=== PATIENT | male | born 1990 | race American Indian/Alaskan Native ===

== ENCOUNTER 2017-08-19 07:38 | Emergency (ER) | payer SELFPAY ==
[2017-08-19 08:04] VITALS: BP 121/75
[2017-08-19] MEDS ORDERED: DUONEB *Not for PRN Use IH ONE ×2 (09:07→09:44)
[2017-08-19] MEDS ORDERED: DELTASONE PO ONE (09:07)
[2017-08-19] MEDS ORDERED: BENADRYL PO ONE (09:08)
--- NOTE | 2017-08-19 09:12 | Emergency Department Report ---
ED General Adult HPI - General Chief complaint: Medical Clearance Stated complaint: CHEST PAIN Time Seen by Provider: 08/19/17 08:44 Source: patient Mode of arrival: Ambulatory Limitations: No Limitations - History of Present Illness Initial comments: 27-year-old male past medical history asthma, anxiety presents with complaint of shortness of breath for 2-3 days. Patient denies chest pain but does state that he feels a sensation of chest tightness. Patient denies smoking drinking or using any drugs. Patient is actively wheezing on exam. States that he also feels slightly anxious and has had difficulty sleeping for several years. Patient is not a primary care doctor and states he has never seen a psych direct selling counselor. Denies any active suicidal or homicidal ideation. Denies any hallucinations. Patient states he does not have any medicine for his asthma. Awake alert and oriented 3. Patient is calm and cooperative during exam. Onset/Timin -: days(s) - Related Data Previous Rx's Medication Instructions Recorded Last Taken Type Albuterol Sulfate [Ventolin Hfa] 1 puff IH Q4H PRN #1 hfa.aer.ad 08/19/17 Unknown Rx Hydroxyzine HCl 25 mg PO Q8H PRN #15 tablet 08/19/17 Unknown Rx predniSONE [Deltasone] 40 mg PO QDAY #10 tab 08/19/17 Unknown Rx Allergies Allergy/AdvReac Type Severity Reaction Status Date / Time No Known Allergies Allergy Unverified 12/11/16 22:30 ED Review of Systems ROS: Stated complaint: CHEST PAIN Other details as noted in HPI Constitutional: denies: chills, fever Eyes: denies: eye pain, eye discharge, vision change ENT: denies: ear pain, throat pain Respiratory: wheezing. denies: cough, shortness of breath Cardiovascular: denies: chest pain, palpitations Endocrine: no symptoms reported Gastrointestinal: denies: abdominal pain, nausea, diarrhea Genitourinary: denies: urgency, dysuria Musculoskeletal: denies: back pain, joint swelling, arthralgia Skin: denies: rash, lesions Neurological: denies: headache, weakness, paresthesias Psychiatric: denies: anxiety, depression Hematological/Lymphatic: denies: easy bleeding, easy bruising ED Past Medical Hx - Past Medical History Hx Asthma: Yes (childhood) Additional medical history: Anxiety - Surgical History Past Surgical History?: No - Social History Smoking Status: Never Smoker Substance Use Type: None - Medications Home Medications: Home Medications Medication Instructions Recorded Confirmed Last Taken Type Albuterol Sulfate [Ventolin Hfa] 1 puff IH Q4H PRN #1 hfa.aer.ad 08/19/17 Unknown Rx Hydroxyzine HCl 25 mg PO Q8H PRN #15 tablet 08/19/17 Unknown Rx predniSONE [Deltasone] 40 mg PO QDAY #10 tab 08/19/17 Unknown Rx ED Physical Exam - General Limitations: No Limitations General appearance: alert, in no apparent distress - Head Head exam: Present: atraumatic, normocephalic - Eye Eye exam: Present: normal appearance - ENT ENT exam: Present: mucous membranes moist - Neck Neck exam: Present: normal inspection - Respiratory Respiratory exam: Present: wheezes (bilateral wheezing both lung marion). Absent: respiratory distress - Cardiovascular Cardiovascular Exam: Present: regular rate, normal rhythm. Absent: systolic murmur, diastolic murmur, rubs, gallop - GI/Abdominal GI/Abdominal exam: Present: soft, normal bowel sounds - Rectal Rectal exam: Present: deferred - Extremities Exam Extremities exam: Present: normal inspection - Back Exam Back exam: Present: normal inspection - Neurological Exam Neurological exam: Present: alert, oriented X3 - Psychiatric Psychiatric exam: Present: normal affect, normal mood - Skin Skin exam: Present: warm, dry, intact, normal color. Absent: rash ED Course Vital Signs 08/19/17 08:02 Temperature 97.6 F Pulse Rate 70 Blood Pressure 121/75 O2 Sat by Pulse 98 Oximetry ED Medical Decision Making - Medical Decision Making A/P: Asthma exacerbation, chronic anxiety 1- refill on albuterol inhaler 2- short course prednisone 3- normal vital signs, patient does not have any audible wheezing or stridor or retractions before discharge. 4- vital signs stable 5- patient to follow up with primary care doctor. I consulted Ms. Merino of mental health to give patient outpatient resources for psychiatric counseling. Patient is not suicidal or homicidal psychotic and does not have any hallucinations at this time. He is calm and fully lucid. I provided patient short prescription for hydroxyzine as needed for anxiety. Critical care attestation.: If time is entered above; I have spent that time in minutes in the direct care of this critically ill patient, excluding procedure time. ED Disposition Clinical Impression: Anxiety Asthma Qualifiers: Asthma severity: mild Asthma persistence: unspecified Asthma complication type : with acute exacerbation Qualified Code(s): J45.901 - Unspecified asthma with ( acute) exacerbation Insomnia Qualifiers: Insomnia type: unspecified Qualified Code(s): G47.00 - Insomnia, unspecified Disposition: DC- TO HOME OR SELFCARE Is pt being admited?: No Does the pt Need Aspirin: No Condition: Stable Instructions: Asthma (ED), Anxiety (ED), Insomnia (ED) Prescriptions: Albuterol Sulfate [Ventolin Hfa] 1 puff IH Q4H PRN #1 hfa.aer.ad PRN Reason: Wheezing Hydroxyzine HCl 25 mg PO Q8H PRN #15 tablet PRN Reason: Anxiety predniSONE [Deltasone] 40 mg PO QDAY #10 tab Referrals: [facility] [Provider Group] - 3-5 Days [facility] [LAB/CONTRACT] - 3-5 Days Forms: Work/School Release Form(ED) Time of Disposition: 10:03
== END 2017-08-19 10:00 | disposition left against medical advice (07) ==
LOC: ED 07:38
DX: J45.901 Unspecified asthma with (acute) exacerbation (principal); F41.9 Anxiety disorder, unspecified; G47.00 Insomnia, unspecified
CPT/HCPCS: 93005; 93010; 94640; 99283; J7512

== ENCOUNTER 2017-08-23 06:10 | Emergency (ER) | payer SELFPAY ==
[2017-08-23 06:31] VITALS: BP 137/81
[2017-08-23] MEDS ORDERED: DUONEB *Not for PRN Use IH ONE ×2 (06:36→07:43)
[2017-08-23] MEDS ORDERED: DECADRON IM ONE (06:38)
[2017-08-23] MEDS ORDERED: TYLENOL PO ONE (06:48)
--- NOTE | 2017-08-23 06:57 | Emergency Department Report ---
<HARRY SORIANO - Last Filed: 08/23/17 06:46> ED Shortness of Breath HPI - General Chief Complaint: Dyspnea/Respdistress Stated Complaint: CHEST PAIN ANXIETY HEADACHE Time Seen by Provider: 08/23/17 06:44 Source: patient Mode of arrival: Ambulatory Limitations: No Limitations - History of Present Illness Initial Comments: 27-year-old -Vietnamese male comes in complaining of shortness of breath and cough with wheezing for a few days. Patient reports that he's had a history of asthma as a child but has not had any recent asthma problems. Patient reports that he was trying to hold out and see if he can treat himself at home with rest. Patient reports that he has come in today because he is having a more difficult to breathe. MD Complaint: shortness of breath -: days(s) (3) Worsens With: lying flat, coughing Context: recent URI, anxiety Associated Symptoms: cough, other Treatments Prior to Arrival: none (headache) - Related Data Previous Rx's Medication Instructions Recorded Last Taken Type Hydroxyzine HCl 25 mg PO Q8H PRN #15 tablet 08/19/17 Unknown Rx predniSONE [Deltasone] 40 mg PO QDAY #10 tab 08/19/17 Unknown Rx Albuterol Sulfate [Ventolin Hfa] 1 puff IH Q4H PRN #1 hfa.aer.ad 08/23/17 Unknown Rx methylPREDNISolone [Medrol] 4 mg PO QAM 6 Days #1 tab.ds.pk 08/23/17 Unknown Rx Allergies Allergy/AdvReac Type Severity Reaction Status Date / Time No Known Allergies Allergy Verified 08/23/17 06:31 ED Review of Systems ROS: Stated complaint: CHEST PAIN ANXIETY HEADACHE Other details as noted in HPI Constitutional: denies: chills, fever Eyes: denies: eye pain, eye discharge, vision change ENT: denies: ear pain, throat pain Respiratory: cough, shortness of breath Cardiovascular: chest pain (with deep cough) Endocrine: no symptoms reported Gastrointestinal: denies: abdominal pain, nausea, diarrhea Genitourinary: denies: urgency, dysuria Musculoskeletal: denies: back pain, joint swelling, arthralgia Skin: denies: rash, lesions Neurological: headache Psychiatric: anxiety. denies: homicidal thoughts, suicidal thoughts Hematological/Lymphatic: denies: easy bleeding, easy bruising ED Past Medical Hx - Past Medical History Previous Medical History?: Yes Hx Asthma: Yes (childhood) Additional medical history: Anxiety - Surgical History Past Surgical History?: No - Social History Smoking Status: Never Smoker Substance Use Type: None - Medications Home Medications: Home Medications Medication Instructions Recorded Confirmed Last Taken Type Hydroxyzine HCl 25 mg PO Q8H PRN #15 tablet 08/19/17 Unknown Rx predniSONE [Deltasone] 40 mg PO QDAY #10 tab 08/19/17 Unknown Rx Albuterol Sulfate [Ventolin Hfa] 1 puff IH Q4H PRN #1 hfa.aer.ad 08/23/17 Unknown Rx methylPREDNISolone [Medrol] 4 mg PO QAM 6 Days #1 tab.ds.pk 08/23/17 Unknown Rx ED Physical Exam - General Limitations: No Limitations General appearance: alert, in no apparent distress - Head Head exam: Present: atraumatic, normocephalic - Eye Eye exam: Present: normal appearance - ENT ENT exam: Present: mucous membranes moist - Respiratory Respiratory exam: Present: wheezes, accessory muscle use - Cardiovascular Cardiovascular Exam: Present: regular rate, normal rhythm. Absent: systolic murmur, diastolic murmur, rubs, gallop - GI/Abdominal GI/Abdominal exam: Present: soft, normal bowel sounds - Neurological Exam Neurological exam: Present: alert, oriented X3 - Psychiatric Psychiatric exam: Present: normal affect, normal mood - Skin Skin exam: Present: warm, dry, intact, normal color. Absent: rash ED Course Vital Signs 08/23/17 06:26 Temperature 97.7 F Pulse Rate 70 Respiratory 18 Rate Blood Pressure 137/81 O2 Sat by Pulse 98 Oximetry ED Medical Decision Making - Medical Decision Making Patient has been evaluated by this provider fast track. Patient has been started and nebulizer treatment with DuoNeb as well as dexamethasone 8 mg IM. An Tylenol 975 mg by mouth. We'll reassess patient after treatment. Critical care attestation.: If time is entered above; I have spent that time in minutes in the direct care of this critically ill patient, excluding procedure time. ED Disposition Clinical Impression: Asthma Qualifiers: Asthma severity: moderate Asthma persistence: unspecified Asthma complication type: with acute exacerbation Qualified Code(s): J45.901 - Unspecified asthma with (acute) exacerbation Disposition: DC-01 TO HOME OR SELFCARE Condition: Stable Instructions: Asthma (ED) Additional Instructions: Follow-up with your primary care physician in 2 days and if he do not have a primary care physician follow-up without [facility] Take medication as prescribed Increasing fluid intake Prescriptions: Albuterol Sulfate [Ventolin Hfa] 1 puff IH Q4H PRN #1 hfa.aer.ad PRN Reason: Wheezing methylPREDNISolone [Medrol] 4 mg PO QAM 6 Days #1 tab.ds.pk Referrals: PRIMARY CARE, [Primary Care Provider] - 08/25/17 [facility] [Outside] - 08/25/17 Forms: Work/School Release Form(ED) <YANET BECKHAM - Last Filed: 08/23/17 08:11> ED Course - Reevaluation(s) Reevaluation #1: 08/23/17 08:15 Patient given an additional DuoNeb treatments at 8:10 AM due to scattered wheezes then to upper lung marion. He said he is feeling better after treatment. Upon reevaluation, lungs sounds were clear. ED Disposition Is pt being admited?: No Does the pt Need Aspirin: No
== END 2017-08-23 08:33 | disposition home or self-care (01) ==
LOC: ED 06:10
DX: J45.901 Unspecified asthma with (acute) exacerbation (principal)
CPT/HCPCS: 94640; 96372; 99283; J1100

== ENCOUNTER 2018-02-13 16:22 | Emergency (ER) | payer SELFPAY ==
[2018-02-13 16:38] VITALS: BP 145/80
[2018-02-13] MEDS ORDERED: TORADOL IM ONE (19:34)
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
--- NOTE | 2018-02-13 22:50 | Cat Scan Report ---
FINAL REPORT PROCEDURE: CT cervical spine without contrast. TECHNIQUE: Computerized tomography of the cervical spine was performed from the skull base to T1 wit hout contrast material. HISTORY: Abnormal cervical spine radiographs. COMPARISON: Limited cervical spine radiographs done earlier today. FINDINGS: The cervical vertebrae have normal height and alignment. There is no subluxation. There are no verteb ral body fractures. The disc spaces are well maintained. The spinal canal is widely patent. The facet joints appear normal. The spinous process of C5 is bifid. There is an acute avulsion fracture throug h left side of this bifid spinous process. The spinous process at C6 is also bifid in configuration. There is an acute, comminuted fracture through both limbs of this bifid process. The neural foramina are widely patent. The prevertebral soft tissues have normal thickness. IMPRESSION: Acute avulsion fractures of the spinous processes at C5 and C6 as described above.
== END 2018-02-13 23:45 | disposition home or self-care (01) ==
LOC: ED 16:22
DX: S12.501A Unspecified nondisplaced fracture of sixth cervical vertebra, initial encounter for closed fracture (principal); S39.012A Strain of muscle, fascia and tendon of lower back, initial encounter; J45.909 Unspecified asthma, uncomplicated; F41.9 Anxiety disorder, unspecified; R07.89 Other chest pain; V87.7XXA Person injured in collision between other specified motor vehicles (traffic), initial encounter; Y93.89 Activity, other specified; Y92.488 Other paved roadways as the place of occurrence of the external cause; Y99.8 Other external cause status
CPT/HCPCS: 71046; 72040; 72100; 72125; 93005; 96372; 99284; J1885

== ENCOUNTER 2018-07-10 22:11 | Emergency (ER) | payer SELFPAY ==
[2018-07-10 22:32] VITALS: BP 150/89
[2018-07-11] MEDS ORDERED: CLEOCIN 900 MG/50 mL 900 MG/50 ML BAG IV ONE (02:03)
[2018-07-11] MEDS ORDERED: NACL 0.9% 1000 ML 1,000 ML IV ONE (02:03)
[2018-07-11] MEDS ORDERED: TORADOL ONE (02:30)
[2018-07-11] MEDS ORDERED: TORADOL IV ONE (02:39)
--- NOTE | 2018-07-11 02:42 | Emergency Department Report ---
ED General Adult HPI - General Chief complaint: Dyspnea/Respdistress Stated complaint: MOUTH SWELLING/ASTHMA Time Seen by Provider: 07/11/18 01:44 Source: patient Mode of arrival: Ambulatory Limitations: No Limitations - History of Present Illness Initial comments: Patient is a 28-year-old male who presents for dental caries with facial swelling, right lower jaw , states right ear and neck pain , this is a recurring problem for past yr, pt has not been able to see dentist due to finances. there is no fever no chills no n/v pt is tolerating po intake. denies throat pain Onset/Timin -: Gradual, week(s) Location: face, mouth Radiation: non-radiation, neck Severity scale (0 -10): 5 Quality: aching Consistency: colicky Improves with: none Associated Symptoms: loss of appetite, nausea/vomiting, weakness Treatments Prior to Arrival: cold therapy, heat therapy - Related Data Previous Rx's Medication Instructions Recorded Last Taken Type hydrOXYzine HCl [Hydroxyzine HCl] 25 mg PO Q8H PRN #15 tablet 08/19/17 Unknown Rx predniSONE [Deltasone] 40 mg PO QDAY #10 tab 08/19/17 Unknown Rx Albuterol Sulfate [Ventolin Hfa] 1 puff IH Q4H PRN #1 hfa.aer.ad 08/23/17 Unknown Rx methylPREDNISolone [Medrol] 4 mg PO QAM 6 Days #1 tab.ds.pk 08/23/17 Unknown Rx Acetaminophen/Codeine [Tylenol 1 tab PO Q6H PRN #12 tab 02/13/18 Unknown Rx /Codeine # 3 tab] Cyclobenzaprine [Flexeril] 10 mg PO TID PRN #30 tablet 02/13/18 Unknown Rx Menthol/Camphor [[place] 1 applicatio TP QID PRN #1 tube 02/13/18 Unknown Rx Ointment] Naproxen 500 mg PO BID PRN #30 tablet 02/13/18 Unknown Rx Acetaminophen [Acetaminophen TAB] 1,000 mg PO Q6HR PRN #60 tablet 07/11/18 Unknown Rx Chlorhexidine Mouthwash [Peridex] 15 ml MM BID #1 bottle 07/11/18 Unknown Rx Clindamycin [Clindamycin CAP] 300 mg PO Q6H 10 Days #40 capsule 07/11/18 Unknown Rx traMADol [Ultram] 50 mg PO Q6HR PRN #412 tablet 07/11/18 Unknown Rx Allergies Allergy/AdvReac Type Severity Reaction Status Date / Time No Known Allergies Allergy Verified 08/23/17 06:31 ED Review of Systems ROS: Stated complaint: MOUTH SWELLING/ASTHMA Other details as noted in HPI Constitutional: denies: chills, fever Eyes: denies: eye pain, eye discharge, vision change ENT: ear pain, dental pain. denies: throat pain Respiratory: denies: cough, shortness of breath, wheezing Cardiovascular: denies: chest pain, palpitations Endocrine: no symptoms reported Gastrointestinal: denies: abdominal pain, nausea, diarrhea Genitourinary: denies: urgency, dysuria Musculoskeletal: denies: back pain, joint swelling, arthralgia Skin: denies: rash, lesions Neurological: denies: headache, weakness, paresthesias Psychiatric: denies: anxiety, depression Hematological/Lymphatic: denies: easy bleeding, easy bruising ED Past Medical Hx - Past Medical History Previous Medical History?: No Hx Hypertension: Yes Hx CVA: No Hx Asthma: Yes (childhood) Additional medical history: Anxiety - Surgical History Past Surgical History?: Yes Additional Surgical History: eye surgery - Family History Family history: no significant, asthma, CAD/DC, cancer, connective tissue, diabetes, hypertension, lung disease, renal disease, sudden , vascular disease, other - Social History Smoking Status: Never Smoker Substance Use Type: None - Medications Home Medications: Home Medications Medication Instructions Recorded Confirmed Last Taken Type hydrOXYzine HCl [Hydroxyzine HCl] 25 mg PO Q8H PRN #15 tablet 08/19/17 Unknown Rx predniSONE [Deltasone] 40 mg PO QDAY #10 tab 08/19/17 Unknown Rx Albuterol Sulfate [Ventolin Hfa] 1 puff IH Q4H PRN #1 hfa.aer.ad 08/23/17 Unknown Rx methylPREDNISolone [Medrol] 4 mg PO QAM 6 Days #1 tab.ds.pk 08/23/17 Unknown Rx Acetaminophen/Codeine [Tylenol 1 tab PO Q6H PRN #12 tab 02/13/18 Unknown Rx /Codeine # 3 tab] Cyclobenzaprine [Flexeril] 10 mg PO TID PRN #30 tablet 02/13/18 Unknown Rx Menthol/Camphor [[place] 1 applicatio TP QID PRN #1 tube 02/13/18 Unknown Rx Ointment] Naproxen 500 mg PO BID PRN #30 tablet 02/13/18 Unknown Rx Acetaminophen [Acetaminophen TAB] 1,000 mg PO Q6HR PRN #60 tablet 07/11/18 Unknown Rx Chlorhexidine Mouthwash [Peridex] 15 ml MM BID #1 bottle 07/11/18 Unknown Rx Clindamycin [Clindamycin CAP] 300 mg PO Q6H 10 Days #40 capsule 07/11/18 Unknown Rx traMADol [Ultram] 50 mg PO Q6HR PRN #412 tablet 07/11/18 Unknown Rx ED Physical Exam - General Limitations: No Limitations General appearance: alert, in no apparent distress - Head Head exam: Present: atraumatic, normocephalic - Eye Eye exam: Present: normal appearance, PERRL, EOMI - ENT ENT exam: Present: mucous membranes moist, TM's normal bilaterally, normal external ear exam - Expanded ENT Exam Expanded Ear exam: Present: normal external inspection Mouth exam: Absent: trismus Teeth exam: Present: dental caries, dental tenderness # (28), gingival enlargement Throat exam: Positive: normal inspection, other (no exudate no lesions no stridor ). Negative: tonsillar erythema, tonsillomegaly, tonsillar exudate, R peritonsillar mass, L peritonsillar mass - Neck Neck exam: Present: normal inspection, full ROM, lymphadenopathy. Absent: tenderness, meningismus, thyromegaly - Respiratory Respiratory exam: Absent: wheezes, stridor, chest wall tenderness - Cardiovascular Cardiovascular Exam: Present: regular rate, normal rhythm, normal heart sounds. Absent: systolic murmur, diastolic murmur, rubs, gallop - GI/Abdominal GI/Abdominal exam: Present: soft, normal bowel sounds. Absent: distended, tenderness, guarding, rebound, bruit, hernia - Rectal Rectal exam: Present: deferred - Extremities Exam Extremities exam: Present: normal inspection, full ROM, normal capillary refill. Absent: tenderness - Back Exam Back exam: Present: normal inspection, full ROM. Absent: tenderness, CVA tenderness (R), CVA tenderness (L), muscle spasm, paraspinal tenderness, vertebral tenderness, rash noted - Neurological Exam Neurological exam: Present: alert, oriented X3, CN II-XII intact, normal gait, reflexes normal - Psychiatric Psychiatric exam: Present: normal affect, normal mood - Skin Skin exam: Present: warm, dry, intact, normal color. Absent: rash ED Course Vital Signs 07/10/18 22:28 Temperature 98.8 F Pulse Rate 57 L Respiratory 18 Rate Blood Pressure 150/89 O2 Sat by Pulse 100 Oximetry ED Medical Decision Making - Lab Data Result diagrams: 07/11/18 02:22 07/11/18 02:22 - Radiology Data Radiology results: report reviewed, image reviewed no focal abscess diffuse soft tissue swelling consistent with osteomylitis - Medical Decision Making no focal abscess diffuse soft tissue swelling consistent with osteomylitis , pt offered admission refuses same states pain much improved with medications given in ed, pt is currentlyh a/o x 3 , mentation is appropriate, pt demeonstrates decision making capacity. plan: sign out AMA, with rx for clindamycin, ultram, peridex pt will follow up with [facility] today, pt advised to return to ed if unable to tolerate po inake , airway is currently patent no stridor no fever no n/v pt will be signing out AMA at this time Critical care attestation.: If time is entered above; I have spent that time in minutes in the direct care of this critically ill patient, excluding procedure time. ED Disposition Clinical Impression: Infected dental carries, Osteomyelitis of mandible Disposition: LEFT AGAINST MED ADVICE Is pt being admited?: No Does the pt Need Aspirin: No Condition: Undetermined Instructions: Osteomyelitis (ED) Prescriptions: Acetaminophen [Acetaminophen TAB] 1,000 mg PO Q6HR PRN #60 tablet PRN Reason: pain Clindamycin [Clindamycin CAP] 300 mg PO Q6H 10 Days #40 capsule Chlorhexidine Mouthwash [Peridex] 15 ml MM BID #1 bottle traMADol [Ultram] 50 mg PO Q6HR PRN #412 tablet PRN Reason: Pain Referrals: XIMENA MERCER MD [Primary Care Provider] - 3-5 Days Forms: Work/School Release Form(ED) Time of Disposition: 04:59
[2018-07-11 02:51] LABS: Basophils % (Auto) 0.4 % (0.0-1.8); Eosinophils % (Auto) 0.3 % (0.0-4.3); Hemoglobin 13.4 gm/dl (11.8-15.2); Lymphocytes # (Auto) 1.1 K/mm3 (1.2-5.4); Lymphocytes % (Auto) 10.3 % (13.4-35.0); Mean Corpuscular HGB Conc 34 % (32-34); Mean Corpuscular Volume 101 fl (84-94); Monocytes # (Auto) 0.9 K/mm3 (0.0-0.8); Monocytes % (Auto) 8.9 % (0.0-7.3); Platelet Count 181 K/mm3 (140-440); Red Blood Count 3.85 M/mm3 (3.65-5.03); Red Cell Distribution Width 13.9 % (13.2-15.2)
[2018-07-11 03:04] LABS: BUN/Creatinine Ratio 5; Blood Urea Nitrogen 4 mg/dL (9-20); Calcium 9.3 mg/dL (8.4-10.2); Hemolysis Index 12
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
== END 2018-07-11 05:05 | disposition left against medical advice (07) ==
LOC: ED 22:11
DX: K02.9 Dental caries, unspecified (principal); M27.2 Inflammatory conditions of jaws; I10 Essential (primary) hypertension; J45.909 Unspecified asthma, uncomplicated
CPT/HCPCS: 36415; 70491; 80048; 85025; 86140; 96365; 96375; 99284; J1885; J7030; Q9967

== ENCOUNTER 2020-07-09 01:24 | Emergency (ER) | payer SELFPAY ==
[2020-07-09 02:08] VITALS: BP 110/49
[2020-07-09] MEDS ORDERED: TETRACAINE 0.5% OPHTH SOLN 4ML OU STA (03:02)
--- NOTE | 2020-07-09 04:09 | Emergency Department Report ---
[facility] Chief Complaint: Eye Problems Stated Complaint: RT EYE PAINFUL IRRITATION Time Seen by Provider: 07/09/20 03:02 Duration: 2 Days Side: Right Severity: mild, moderate Symptoms: Yes Eye Itching, Yes Eye Redness, Yes Eye Pain, Yes Mucous Drainage, No Blurred Vision, No Preceding URI, No H/O Allergic Rhinitis, No Trauma, No Fever, No Headache ED Review of Systems ROS: Stated complaint: RT EYE PAINFUL IRRITATION Other details as noted in HPI Comment: All other systems reviewed and negative ED Past Medical Hx - Past Medical History Previous Medical History?: Yes Hx Hypertension: Yes Hx CVA: No Hx Asthma: Yes (childhood) Additional medical history: Anxiety - Surgical History Additional Surgical History: eye surgery as a baby - Social History Smoking Status: Current Every Day Smoker Substance Use Type: None - Medications Home Medications: Home Medications Medication Instructions Recorded Confirmed Last Taken Type hydrOXYzine HCL [Hydroxyzine HCl] 25 mg PO Q8H PRN #15 tablet 08/19/17 Unknown Rx predniSONE [Deltasone] 40 mg PO QDAY #10 tab 08/19/17 Unknown Rx Albuterol Sulfate [Ventolin Hfa] 1 puff IH Q4H PRN #1 hfa.aer.ad 08/23/17 Unknown Rx methylPREDNISolone [Medrol] 4 mg PO QAM 6 Days #1 tab.ds.pk 08/23/17 Unknown Rx Acetaminophen/Codeine [Tylenol 1 tab PO Q6H PRN #12 tab 02/13/18 Unknown Rx /Codeine # 3 tab] Cyclobenzaprine [Flexeril] 10 mg PO TID PRN #30 tablet 02/13/18 Unknown Rx Menthol/Camphor [[place] 1 applicatio TP QID PRN #1 tube 02/13/18 Unknown Rx Ointment] Naproxen 500 mg PO BID PRN #30 tablet 02/13/18 Unknown Rx Acetaminophen [Acetaminophen TAB] 1,000 mg PO Q6HR PRN #60 tablet 07/11/18 Unknown Rx Chlorhexidine Mouthwash [Peridex] 15 ml MM BID #1 bottle 07/11/18 Unknown Rx Clindamycin [Clindamycin CAP] 300 mg PO Q6H 10 Days #40 capsule 07/11/18 Unknown Rx traMADoL [Ultram] 50 mg PO Q6HR PRN #412 tablet 07/11/18 Unknown Rx Ketorolac Tromethamin 0.4%(Nf) 1 drop OP QID #1 bottle 07/09/20 Unknown Rx [Acular Ls 0.4% Ophth Patti] Tobramycin [Tobrex] 1 drop OP Q4H #1 bottle 07/09/20 Unknown Rx [facility] Exam - Exam General: Vital signs noted. No distress. Alert and acting appropriately. Eye Exam: Right Injection, Neither Chemosis, Neither Abnormal Pupil, Neither EOMI, Neither Eye Foreign Body, Neither Lid Foreign Body, Neither Mucous Discharge, Neither Purulent Discharge, Neither Fluorescein Uptake, Neither Fluorescein Uptake (slit lamp), Neither Cell/Flare (slit lamp), Neither Corneal Edema, Neither Photophobia HEENT: Yes Nasal Congestion, No Pharyngeal Erythema Remainder of HEENT: Normal Lungs: Yes Clear Lung Sounds, Yes Good Air Exchange ED Course Vital Signs 07/09/20 01:36 Temperature 97.7 F Pulse Rate 61 Respiratory 18 Rate Blood Pressure 110/49 O2 Sat by Pulse 96 Oximetry ED Medical Decision Making - Medical Decision Making Scleral injection. No recent eye trauma suspected microtrauma. Negative Rafael sign. No significant photophobia. Given history and exam I have low suspicion for corneal abrasion or corneal ulcer, globe rupture, uveitis, HSV keratitis, endophthalmitis, retinal detachment, angle-closure glaucoma, foreign body. Plan is to discharge home with primary care and ophthalmologic follow-up within 48 hours if not resolving Critical care attestation.: If time is entered above; I have spent that time in minutes in the direct care of this critically ill patient, excluding procedure time. ED Disposition Clinical Impression: Conjunctivitis Disposition: DC-01 TO HOME OR SELFCARE Is pt being admited?: No Does the pt Need Aspirin: No Condition: Stable Instructions: How to Use Eye Drops and Eye Ointments Prescriptions: Ketorolac Tromethamin 0.4%(Nf) [Acular Ls 0.4% Ophth Patti] 1 drop OP QID #1 bottle Tobramycin [Tobrex] 1 drop OP Q4H #1 bottle Referrals: [facility] [Provider Group] - 3-5 Days
== END 2020-07-09 04:00 | disposition home or self-care (01) ==
LOC: ED 01:24
DX: H10.9 Unspecified conjunctivitis (principal); I10 Essential (primary) hypertension; F41.9 Anxiety disorder, unspecified; J45.909 Unspecified asthma, uncomplicated; F17.200 Nicotine dependence, unspecified, uncomplicated; Z98.890 Other specified postprocedural states
CPT/HCPCS: 99283